=== PATIENT | male | born 1990 | race Native Hawaiian/Other Pacific Islander ===

== ENCOUNTER 2018-03-18 18:49 | Emergency (ER) | payer OTHER ==
[~2018-03-18] VITALS: Ht 162.6 cm; Wt 72.6 kg
[2018-03-18] MEDS ORDERED: IBUPROFEN 600600 M1 PO (19:11)
[2018-03-18] MEDS ORDERED: AUGMENTIN 875-1 EACH PO (19:11)
[2018-03-18 21:14] VITALS: BP 112/70
== END 2018-03-18 21:49 | disposition home or self-care (01) ==
LOC: ER 18:49
DX: S01.25XA Open bite of nose, initial encounter (principal); W54.0XXA Bitten by dog, initial encounter; Y93.89 Activity, other specified; Y92.89 Other specified places as the place of occurrence of the external cause; Y99.8 Other external cause status